=== PATIENT | female | born 1995 | race African-American/Black ===

== ENCOUNTER 2017-03-20 13:30 | Emergency (ER) | payer SELFPAY ==
[~2017-03-20] VITALS: Ht 154.9 cm; Wt 77.0 kg
[2017-03-20] MEDS ORDERED: KETOROLAC 60MG/2ML VIAL IM ONE (17:30)
[2017-03-20] MEDS ORDERED: CYCLOBENZAPRINE 10MG TABLET PO ONE (17:30)
[2017-03-20 18:38] VITALS: BP 120/89
== END 2017-03-20 18:39 | disposition home or self-care (01) ==
LOC: ER 14:07
DX: M43.6 Torticollis (principal)
CPT/HCPCS: 81025; 96372; 99283; J1885; Z7610

== ENCOUNTER 2021-03-16 00:40 | Emergency (ER) | payer SELFPAY ==
[~2021-03-16] VITALS: Ht 154.9 cm; Wt 82.4 kg
[2021-03-16] MEDS ORDERED: ACETAMINOPHEN 325MG TABLET PO ONE (01:45)
[2021-03-16] MEDS ORDERED: METOCLOPRAMIDE HCL 5MG TABLET PO ONE (01:45)
[2021-03-16] MEDS ORDERED: DIPHENHYDRAMINE 25MG CAPSULE PO ONE (01:45)
[2021-03-16 02:18] LABS: BASOPHILS % 0.6 % (0.0-2.0); EOSINOPHILS % 0.8 % (0.0-5.0); HEMATOCRIT. 40.7 % (36.0-48.0); HEMOGLOBIN. 13.6 g/dL (12.0-16.0); LYMPHOCYTES % 29.6 % (20.0-50.0); MEAN CORPUSCULAR HEMOGLOBIN 28.6 pg (28.0-32.0); MEAN CORPUSCULAR VOLUME 85.4 fL (81.0-99.0); MEAN PLATELET VOLUME 9.9 fl (7.4-10.4); MONOCYTES % 4.4 % (2.0-8.0); NEUTROPHILS % 64.6 % (40.0-76.0); PLATELET 297 x1000/uL (130-400); RED BLOOD CELL COUNT 4.77 mill/uL (4.2-5.4); RED CELL DISTRIBUTION WIDTH 14.3 % (11.6-14.6)
[2021-03-16 02:23] LABS: CHLORIDE 106 mEq/L (98-107)
[2021-03-16] MEDS ORDERED: HYDROCODONE/ACETAMINOPHEN 5/325MG TABLET PO ONE (04:00)
[2021-03-16] MEDS ORDERED: ASPI-964 PO (05:08)
[2021-03-16 05:48] VITALS: BP 118/70
== END 2021-03-16 05:48 | disposition home or self-care (01) ==
LOC: ER 00:40
DX: R07.89 Other chest pain (principal); R51.9 Headache, unspecified
CPT/HCPCS: 36415; 71045; 80053; 81025; 84484; 85025; 93005; 99285; J8597; Q0163

== ENCOUNTER 2022-02-24 22:26 | Emergency (ER) | payer SELFPAY ==
[~2022-02-24] VITALS: Ht 154.9 cm; Wt 90.0 kg
[~2022-02-24 22:26] MED LIST: ASPI1TAB8 PO
[2022-02-24 22:40] VITALS: BP 168/76
[2022-02-25] MEDS ORDERED: OXYCODONE HCL/ACETAMINOPHEN 5/325MG TABLET PO ONE (00:30)
[2022-02-25] MEDS ORDERED: OXYCODONE HCL/ACETAMINOPHEN 5/325MG TABLET PO NR (02:15)
== END 2022-02-25 04:40 | disposition home or self-care (01) ==
LOC: ER 22:26
DX: M54.2 Cervicalgia (principal); M54.6 Pain in thoracic spine; M54.9 Dorsalgia, unspecified; F41.9 Anxiety disorder, unspecified; F32.9 Major depressive disorder, single episode, unspecified; V43.62XA Car passenger injured in collision with other type car in traffic accident, initial encounter; Y93.89 Activity, other specified; Y92.410 Unspecified street and highway as the place of occurrence of the external cause; Z88.6 Allergy status to analgesic agent; Z98.890 Other specified postprocedural states
CPT/HCPCS: 71045; 72128; 81025; 99284